=== PATIENT | female | born 1990 | race Caucasian/White ===

== ENCOUNTER 2017-11-05 21:00 | Inpatient (IN) | payer OTHER ==
[~2017-11-05 21:00] MED LIST: Carboprost 250 MCG/ML AMP IM PRN; HYDROcodone/Acetaminophen 5/325 mg Tablet PO PRN; LR / Pitocin 40 units/1000 ml 1,000 ML IV PRN; Ondansetron HCl/PF 4 MG/2 ML Vial IVP PRN; Promethazine HCl 25 MG/ML VIAL IM PRN; Zolpidem Tartrate 5 MG TAB PO PRN
[2017-11-05] MEDS ORDERED: Lidocaine 1% (PF) 30 ML VIAL SC PRN ×2 (21:15→23:00)
[2017-11-05] MEDS ORDERED: Ibuprofen 800 MG TAB PO PRN (21:15)
[2017-11-05] MEDS ORDERED: Misoprostol 200 MCG TAB PR PRN (21:15)
[2017-11-05 21:55] VITALS: BMI 43.0
[2017-11-05] MEDS: Lactated Ringer's 1,000 ML IV SCH (22:10)
[2017-11-05] MEDS ORDERED: Misoprostol 100 MCG TAB ONE (22:23)
[2017-11-05 22:26] LABS: Hemoglobin 10.4 g/dL (12.0-16.0); Mean Corpuscular HGB CONC 32.4 g/dL (32.0-36.0); Mean Corpuscular Hemoglobin 24.5 pg (27.0-31.0); Mean Corpuscular Volume 75.6 fl (81.0-99.0); Mean Platelet Volume 8.9 fL (7.4-10.4); Platelet Count 318 thou/uL (130-400); RBC Distribution Width 14.3 % (11.5-14.5); Red Blood Cell (RBC) Count 4.24 mill/uL (4.20-5.40)
[2017-11-05] MEDS ORDERED: LR / Pitocin 40 units/1000 ml 1,000 ML IV PRN (22:50)
[2017-11-05] MEDS ORDERED: Misoprostol 100 MCG TAB VAG PRN (22:51)
[2017-11-05 22:58] LABS: HIV (1/2) Antibody/Antigen Non-Reactive (NonReactive); HIV 1/2 INDEX 0.34 S/CO (<1.00)
[2017-11-05 22:59] LABS: Syphilis Antibody Nonreactive (Nonreactive); Syphilis Antibody Index 0.03 S/CO (<1.00 Non-Reactive)
[2017-11-05] MEDS ORDERED: LR 500 ML/Oxytocin 10 units 500 ML IV SCH ×2 (23:00)
[2017-11-05] MEDS ORDERED: Misoprostol 100 MCG TAB VAG SCH (23:00)
[2017-11-05 23:06] LABS: HBSAg Index 0.21 S/CO (0-0.99); Hep B Surf Ag Non-Reactive S/CO (NonReactive)
[2017-11-06] MEDS ORDERED: Fentanyl 4 mcg/Marc 0.1% Cadd 100 ML in Premix Bag 1 BAG EPIDURAL SCH (00:08)
[2017-11-06] MEDS ORDERED: Naloxone HCl 0.4 mg/ml Vial IV PRN (00:08)
[2017-11-06] MEDS: Lactated Ringer's 1,000 ML IV SCH (00:41)
[2017-11-06] MEDS ORDERED: Naloxone HCl 0.4 mg/ml Vial IVP PRN ×2 (01:13)
[2017-11-06] MEDS ORDERED: Lactated Ringer's 500 ML IV PRN (01:13)
[2017-11-06] MEDS ORDERED: Acetaminophen 325 MG TAB PO PRN (01:13)
[2017-11-06] MEDS ORDERED: diphenhydrAMINE 50 MG/ML VIAL IVP PRN (01:13)
[2017-11-06] MEDS ORDERED: Promethazine HCl 25 MG/ML VIAL IM PRN (01:13)
[2017-11-06] MEDS ORDERED: Eucerin (Mineral Oil/Petrolatum,White) 30 gm Jar TOP PRN (01:13)
[2017-11-06] MEDS ORDERED: ePHEDrine/0.9% NaCl/PF SYRINGE 50 mg/10 ml SLOW IVP PRN (01:13)
[2017-11-06] MEDS ORDERED: Ondansetron HCl/PF 4 MG/2 ML Vial IVP PRN (01:13)
[2017-11-06] MEDS ORDERED: Communication Order-Pharmacy FS SCH (01:15)
[2017-11-06] MEDS ORDERED: Fentanyl 4mcg/Marcaine 0.1% Cassette 100 ML EPIDURAL SCH (01:15)
--- NOTE | 2017-11-06 10:04 | PDOC.OPDEL ---
OB Operative/Delivery Note Delivery Dr/Surgeon: Merle Pre-Delivery Diagnosis: elective induction Procedure/Post Delivery Dx: spontaneous vaginal delivery Weeks gestation: 39 Anesthesia: epidural - Findings A Sex: female - 1 min: 8 - 5 min: 9 - Additional Findings/Plan Placenta delivered: spontaneous Repaired Obstetrical Laceration: 2nd degree Estimated blood loss: 250ml Post delivery plan: routine recovery
[2017-11-06] MEDS ORDERED: Benzocaine/Menthol 20-0.5% 60 ML CAN TOP PRN (10:05)
[2017-11-06] MEDS ORDERED: Bisacodyl 10 MG SUPP PR PRN (10:05)
[2017-11-06] MEDS ORDERED: Adacel (T-DAP) 0.5 ML VIAL IM ONE (10:05)
[2017-11-06] MEDS ORDERED: Milk Of Magnesia 30 ML UDCUP PO PRN (10:05)
[2017-11-06] MEDS ORDERED: diphenhydrAMINE 25 MG CAP PO PRN (10:05)
[2017-11-06] MEDS ORDERED: traMADol HCl 50 MG TAB PO PRN (10:05)
[2017-11-06] MEDS ORDERED: Preparation H Ointment 28 GM TUBE PR PRN (10:05)
[2017-11-06] MEDS ORDERED: LR / Pitocin 40 units/1000 ml 1,000 ML IV SCH (10:15)
[2017-11-06] MEDS: Ibuprofen 800 MG TAB PO SCH ×2 (13:54→22:25)
[2017-11-06] MEDS: Ferrous Sulfate 325 MG TAB PO SCH (15:58)
[2017-11-06] MEDS ORDERED: Lidocaine 2% MPF 10 ML AMP (For Epidural Use) ONE (21:31)
[2017-11-06] MEDS: Docusate Calcium (SURFAK) 240 MG CAP PO SCH (22:25)
[2017-11-07] MEDS: Ibuprofen 800 MG TAB PO SCH ×3 (05:49→21:31)
--- NOTE | 2017-11-07 07:17 | PDOC.PP ---
Post Progress Note Post Day #: 1 PO intake tolerated: yes Flatus: yes Ambulation: yes Vital Signs (12 hours) Temp Pulse Resp BP 11/07/17 03:20 98.5 F 103 H 20 130/79 11/07/17 00:00 98.5 F 93 18 129/69 11/06/17 20:20 98.3 F 80 16 134/80 Weight Weight 235 lb - Physical Examination General: NAD Cardiovascular: no m/r/g, RRR Respiratory: clear to auscultation bilaterally, non-labored breathing Abdominal: + bowel sounds, lochia, no distention, appropriately TTP Result Diagrams: 11/05/17 22:15 Additional Labs: Post Labs Hep Bs Antigen Non-Reactive S/CO (NonReactive) 11/05/17 22:15 - Assessment/Plan post day 1-multip. doing well .anticipate d/c today.
[2017-11-07] MEDS: Ferrous Sulfate 325 MG TAB PO SCH ×2 (08:22→17:11)
[2017-11-07] MEDS: Prenatal Vitamin 1 TAB PO SCH (08:44)
[2017-11-07] MEDS: Docusate Calcium (SURFAK) 240 MG CAP PO SCH ×2 (08:44→21:31)
--- NOTE | 2017-11-08 05:55 | PDOC.PP ---
Post Progress Note Post Day #: 2 PO intake tolerated: yes Flatus: yes Ambulation: yes Vital Signs (12 hours) Temp Pulse Resp BP 11/08/17 00:46 98.5 F 96 16 139/78 11/07/17 20:00 98.9 F 82 16 136/62 Weight Weight 235 lb - Physical Examination General: NAD Cardiovascular: no m/r/g, RRR Respiratory: clear to auscultation bilaterally, non-labored breathing Abdominal: + bowel sounds, lochia, no distention, appropriately TTP Result Diagrams: 11/05/17 22:15 Additional Labs: Post Labs Hep Bs Antigen Non-Reactive S/CO (NonReactive) 11/05/17 22:15 - Assessment/Plan d/c today. baby required bili light therapy f/u 6 weeks.
[2017-11-08] MEDS: Ibuprofen 800 MG TAB PO SCH ×2 (06:04→14:24)
[2017-11-08 08:49] VITALS: BP 148/67; TEMP 99.1
[2017-11-08] MEDS: Ferrous Sulfate 325 MG TAB PO SCH (09:32)
[2017-11-08] MEDS: Docusate Calcium (SURFAK) 240 MG CAP PO SCH (09:33)
[2017-11-08] MEDS: Prenatal Vitamin 1 TAB PO SCH (09:33)
== END 2017-11-08 16:35 | disposition home or self-care (01) | DRG 775 ==
LOC: L&D 21:02 → 3SW 11-06 12:36
PROVIDERS: ADMIT Obstetrics & Gynecology; ATTEND Obstetrics & Gynecology
PROC: 10E0XZZ Delivery of Products of Conception, External Approach (ICD-10-PCS; principal; 2017-11-06)
PROC: 0KQM0ZZ Repair Perineum Muscle, Open Approach (ICD-10-PCS; 2017-11-06)
PROC: 3E033VJ Introduction of Other Hormone into Peripheral Vein, Percutaneous Approach (ICD-10-PCS; 2017-11-06)
DX: O70.1 Second degree perineal laceration during delivery (principal); Z37.0 Single live birth; Z3A.39 39 weeks gestation of pregnancy
CPT/HCPCS: 36415; 51702; 85027; 86780; 87340; 87389; J2001

== ENCOUNTER 2022-11-29 14:32 | Observation (INO) | payer OTHER, SELFPAY ==
[~2022-11-29 14:32] MED LIST changes: -Carboprost 250 MCG/ML AMP IM PRN; -HYDROcodone/Acetaminophen 5/325 mg Tablet PO PRN; +Iopamidol 370 76% 75 ML VIAL FS ONE; -LR / Pitocin 40 units/1000 ml 1,000 ML IV PRN; -Ondansetron HCl/PF 4 MG/2 ML Vial IVP PRN; -Promethazine HCl 25 MG/ML VIAL IM PRN; -Zolpidem Tartrate 5 MG TAB PO PRN
[2022-11-29 15:46] LABS: Hemoglobin 12.3 g/dL (12.0-16.0); Mean Corpuscular HGB CONC 32.7 g/dL (32.0-36.0); Mean Corpuscular Hemoglobin 25.3 pg (27.0-31.0); Mean Corpuscular Volume 77.5 fl (78.0-98.0); Mean Platelet Volume 8.3 fL (7.4-10.4); Platelet Count 391 10x3/uL (130-400); Red Blood Cell (RBC) Count 4.84 mill/uL (4.20-5.40); White Blood Cell (WBC) Count 20.9 10x3/uL (4.8-10.8)
[2022-11-29 15:50] LABS: BHCG - Serum Negative (NEGATIVE); Pregs Control Background? CLEAR/WHITE (CLR/WHITE); Pregs Control Bar Appear? YES (CONTROL BAR)
[2022-11-29 16:05] LABS: ALT (SGPT) 10 U/L (8-55); AST (SGOT) 17 U/L (5-34); Albumin 4.6 g/dL (3.5-5.0); Alkaline Phosphatase 102 U/L (40-110); Anion Gap 16 mmol/L (10-20); BUN (Urea Nitrogen) 12 mg/dL (7.0-18.7); Bilirubin, Total 0.8 mg/dL (0.2-1.2); Calc. Creatinine Clearance 0 mL/min (70-130); Calcium 10.1 mg/dL (7.8-10.44); Carbon Dioxide 19 mmol/L (22-29); Chloride 107 mmol/L (98-107); Estimated GFR 106; Glucose 130 mg/dL (70-105); Lipase 15 U/L (8-78); Potassium 3.7 mmol/L (3.5-5.1); Protein, Total 8.6 g/dL (6.0-8.3); Sodium 138 mmol/L (136-145)
[2022-11-29 16:06] LABS: Band 10 % (5-11); Hypochromia SLIGHT = 6-15 cells (100X) (0-5/hpf); Lymphocytes 13 % (21-51); MDiff Complete? YES; Microcytosis SLIGHT = 6-15 cells (100X) (0-5/hpf); Monocytes 3 % (0-10); Neutrophil 73 % (42-75); Platelet Morphology Comment Appears Adequate; Polychromasia SLIGHT = 2-3 cells (100X) (0-2/hpf); Vacuoles SLIGHT
[2022-11-29] MEDS ORDERED: Ondansetron PF 4 MG/2 ML Vial ONE ×2 (16:32→18:26)
[2022-11-29 16:39] LABS: Bilirubin Negative (Negative); Blood, Urine Negative (Negative); Clarity Extra Turbid (Clear); Glucose, Urine (Dipstick) Normal (Negative); Ketone, Urine Negative (Negative); Leukocyte Negative Leu/uL (Negative); Nitrite Negative (Negative); Protein, Urine (Dipstick) 20 mg/dL (Neg-Trace); Urobilinogen Normal mg/dL (Less than 2); pH, Urine 5.5 (5.0-9.0)
[2022-11-29 16:50] LABS: Amphetamine Not Detected (NotDetected); Barbiturates Screen Not Detected (NotDetected); Benzodiazepine Screen Not Detected (NotDetected); Cocaine Metabolite Screen Not Detected (NotDetected); Methadone Not Detected (NotDetected); Methamphetamine Not Detected (NotDetected); Opiate Screen Not Detected (NotDetected); Oxycodone Screen Not Detected (NotDetected); Phencyclidine (PCP) Not Detected (NotDetected); THC/Cannabinoid Screen Not Detected (NotDetected); Tricyclic Screen Not Detected (NotDetected)
[2022-11-29] MEDS ORDERED: Morphine 4 MG/ML VIAL ONE (18:26)
[2022-11-29] MEDS ORDERED: Cefepime 2 GM VIAL ONE (18:26)
[2022-11-29] MEDS ORDERED: metroNIDAZOLE 500 MG/100 ML BAG ONE (18:37)
[2022-11-29] MEDS ORDERED: Ondansetron ODT 4 MG TAB SL PRN (21:15)
[2022-11-29] MEDS ORDERED: Ondansetron PF 4 MG/2 ML Vial IVP PRN (21:15)
[2022-11-29] MEDS ORDERED: Morphine 2 MG/ML VIAL SLOW IVP PRN (21:17)
[2022-11-29] MEDS: Sodium Chloride 0.9% 1,000 ML IV SCH (22:19)
[2022-11-29 22:33] VITALS: BMI 43.3
[2022-11-29] MEDS: Acetaminophen 325 MG TAB PO PRN (22:38)
[2022-11-30] MEDS ORDERED: Cefepime 2 GM in Sodium Chloride 0.9% 100 ML IVPB SCH (02:00)
[2022-11-30] MEDS: Sodium Chloride 0.9% 1,000 ML IV SCH (02:39)
[2022-11-30 04:20] LABS: SARS-CoV-2 NAA Rapid Test Not Detected (NotDetected)
[2022-11-30] MEDS: Acetaminophen 325 MG TAB PO PRN (05:37)
[2022-11-30] MEDS ORDERED: Bupivacaine/Epinephrine 0.25% 30 ML VIAL ONE (05:59)
[2022-11-30] MEDS ORDERED: fentaNYL PF 100 MCG/2 ML SYRINGE ONE (06:50)
[2022-11-30] MEDS ORDERED: SUGAMMADEX SODIUM 200 MG/2 ML VIAL ONE (06:50)
[2022-11-30] MEDS ORDERED: Bupivacaine HCl 0.5%/Epinephrine 1:200,000/PF 30 ml Vial ONE (06:58)
[2022-11-30] MEDS ORDERED: Ondansetron PF 4 MG/2 ML Vial ONE (07:13)
[2022-11-30] MEDS ORDERED: Metoclopramide HCl 10 MG/2 ML VIAL ONE (07:13)
[2022-11-30] MEDS ORDERED: Rocuronium Bromide 10 MG/ML (10ML VIAL) ONE (07:13)
[2022-11-30] MEDS ORDERED: Succinylcholine Chloride 100 MG/5 ML SYRINGE FS ONE (07:13)
[2022-11-30] MEDS ORDERED: Dexamethasone 20 MG/5 ML VIAL ONE (07:13)
[2022-11-30] MEDS ORDERED: PROPOFOL 200 MG/20 ML VIAL ONE (07:13)
[2022-11-30] MEDS ORDERED: Lidocaine 1% PF 5 ML VIAL ONE (07:13)
[2022-11-30] MEDS ORDERED: Ketorolac Tromethamine 30 MG/ML VIAL ONE (07:13)
[2022-11-30] MEDS ORDERED: Morphine Sulfate 2 MG/ML SYRINGE SLOW IVP PRN (07:31)
[2022-11-30] MEDS ORDERED: HYDROmorphone 2 MG/ML VIAL SLOW IVP PRN (07:31)
[2022-11-30] MEDS ORDERED: Ondansetron HCl/PF 4 MG/2 ML Vial IVP PRN (07:31)
[2022-11-30] MEDS ORDERED: Promethazine HCl 25 MG/ML VIAL IM PRN (07:31)
[2022-11-30] MEDS ORDERED: Meperidine HCl/PF 25 MG/ML VIAL SLOW IVP PRN (07:31)
[2022-11-30] MEDS ORDERED: traMADol HCl 50 MG TAB PO PRN (08:12)
[2022-11-30] MEDS ORDERED: Ibuprofen 600 MG TAB PO PRN (08:12)
[2022-11-30] MEDS ORDERED: Ketorolac Tromethamine 30 MG/ML VIAL IVP PRN (08:14)
[2022-11-30] MEDS ORDERED: Acetaminophen 500 MG TAB PO SCH ×2 (08:15→13:00)
[2022-11-30 10:52] VITALS: BP 139/84; TEMP 97.7
[2022-12-02] MEDS ORDERED: FLU VACC QS2022-23(6MOS UP)/PF 60 MCG/0.5 ML SYRINGE IM ONE (09:00)
== END 2022-11-30 14:50 | disposition home or self-care (01) ==
LOC: ERS 14:32 → SURG B 18:24
PROVIDERS: ADMIT Specialist; ATTEND Specialist
PROC: 0DTJ4ZZ Resection of Appendix, Percutaneous Endoscopic Approach (ICD-10-PCS; principal; 2022-11-30)
DX: K35.80 Unspecified acute appendicitis (principal); K80.20 Calculus of gallbladder without cholecystitis without obstruction; N94.89 Other specified conditions associated with female genital organs and menstrual cycle; E66.01 Morbid (severe) obesity due to excess calories; Z68.41 Body mass index [BMI] 40.0-44.9, adult; Z88.0 Allergy status to penicillin; Z20.822 Contact with and (suspected) exposure to COVID-19
CPT/HCPCS: 74177; 80053; 80306; 81003; 83690; 84484; 84703; 85025; 88304; 93005; 96361; 96374; 96375; 96376; A4649; G0378; J0692; J1100; J1885; J2270; J2405; J2704; J2765; J3490; J7050; Q9967; U0002; U0003; U0005